=== PATIENT | male | born 1965 | race Caucasian/White ===

== ENCOUNTER 2018-04-16 19:03 | Emergency (ER) | payer OTHER ==
[~2018-04-16] VITALS: Ht 160 cm; Wt 83.5 kg
[2018-04-16 19:07] VITALS: BP 145/95
--- NOTE | 2018-04-16 19:18 | NUR ---
PT TO ED 03 WITH STEADY GAIT.
--- NOTE | 2018-04-16 19:22 | NUR ---
PT PRESENTS TO ED WITH C/O EPITAXIS X 1400 TODAY. NO ACTIVE BLEEDING AT THIS TIME. PT REPORTS MILD BLEEDING WHEN TAKING A SHOWER AGAIN AT 1700 TODAY. DENIES TRAUMA OR DISTRESS. PT PLACED INTO BED, PENDING MD MUNOZ.
[2018-04-16] MEDS ORDERED: hydrALAZINE 20 MG/ML VIAL IM ONE (19:55)
[2018-04-16 20:15] LABS: BASOPHILS # (AUTO) 0.1 K/uL (0.00-0.22); BASOPHILS % (AUTO) 0.7 % (0.0-2.0); EOSINOPHILS # (AUTO) 0.1 K/uL (0-0.4); EOSINOPHILS % (AUTO) 0.7 % (0.0-4.0); HEMATOCRIT 48.5 % (36-52); HEMOGLOBIN 16.6 g/dL (12.0-18.0); LYMPHOCYTES # (AUTO) 1.7 K/uL (2.0-11.5); LYMPHOCYTES % (AUTO) 20.9 % (20.5-51.1); MEAN CORPUSCULAR HEMOGLOBIN 32 pg (27-31); MEAN CORPUSCULAR HGB CONC 34 g/dL (33-37); MEAN CORPUSCULAR VOLUME 92.8 fL (80-94); MONOCYTES # (AUTO) 0.6 K/uL (0.8-1.0); MONOCYTES % (AUTO) 7.7 % (1.7-9.3); NEUTROPHILS # (AUTO) 5.6 K/uL (1.8-7.7); PLATELET COUNT (AUTO) 179 K/uL (140-450); RED BLOOD CELL COUNT(AUTO) 5.23 MIL/uL (4.20-6.10); RED CELL DISTRIBUTION WIDTH 13.1 % (11.6-13.7)
[2018-04-16 20:27] LABS: ANION GAP 11.5 (8-16); CARBON DIOXIDE 24.9 mmol/L (21-32); CREATININE 0.9 mg/dL (0.7-1.3); POTASSIUM 3.4 mmol/L (3.5-5.1)
[2018-04-16 20:31] LABS: PROTHROMBIN TIME 9.7 secs (10.8-13.4)
[2018-04-16 20:32] LABS: ALBUMIN 3.6 g/dL (3.4-5.0); TOTAL BILIRUBIN 0.4 mg/dL (0.0-1.0)
[2018-04-16 21:23] VITALS: BP 144/96
--- NOTE | 2018-04-16 21:23 | NUR ---
Patient discharged with v/s stable. Written and verbal after care instructions given and explained. Patient alert, oriented and verbalized understanding of instructions. Ambulatory with steady gait. All questions addressed prior to discharge. ID band removed. Patient advised to follow up with PMD. Rx of OXYMETAZOLINE NASAL SPRAY, given. Patient educated on indication of medication including possible reaction and side effects. Opportunity to ask questions provided and answered.
== END 2018-04-16 21:23 | disposition home or self-care (01) ==
LOC: MED 19:03
DX: I10 Essential (primary) hypertension (principal); R04.0 Epistaxis
CPT/HCPCS: 36415; 80053; 85025; 85610; 85730; 96372; 99283; J0360

== ENCOUNTER 2019-03-11 13:43 | Emergency (ER) | payer OTHER ==
[~2019-03-11] VITALS: Ht 165.1 cm; Wt 88.5 kg
[2019-03-11 13:50] VITALS: BP 121/95
--- NOTE | 2019-03-11 13:59 | NUR ---
Patient ambulated to bed 8 with family. RN evaluating patient at bedside.
--- NOTE | 2019-03-11 14:03 | NUR ---
EKG completed at bedside by EMT.
[2019-03-11] MEDS ORDERED: ACETAMINOPHEN EXTRA STRENGTH 500 MG TAB PO ONE (14:10)
[2019-03-11] MEDS ORDERED: AMOX-999 PO (14:27)
[2019-03-11] MEDS ORDERED: PRAV20TA2 PO (14:27)
[2019-03-11] MEDS ORDERED: BENZ-196 PO (14:27)
[2019-03-11] MEDS ORDERED: AMLO10TA PO (14:27)
[2019-03-11 14:49] LABS: BASOPHILS % (AUTO) 0.4 % (0.0-2.0); HEMATOCRIT 44.7 % (36-52); HEMOGLOBIN 14.9 g/dL (12.0-18.0); LYMPHOCYTES # (AUTO) 0.8 K/uL (2.0-11.5); LYMPHOCYTES % (AUTO) 16.4 % (20.5-51.1); MEAN CORPUSCULAR HEMOGLOBIN 30 pg (27-31); MEAN CORPUSCULAR HGB CONC 33 g/dL (33-37); MEAN CORPUSCULAR VOLUME 91.1 fL (80-94); MONOCYTES # (AUTO) 0.2 K/uL (0.8-1.0); MONOCYTES % (AUTO) 5.1 % (1.7-9.3); NEUTROPHILS # (AUTO) 3.7 K/uL (1.8-7.7); NEUTROPHILS % (AUTO) 78.1 % (42.2-75.2); PLATELET COUNT (AUTO) 107 K/uL (140-450); RED CELL DISTRIBUTION WIDTH 14.6 % (11.6-13.7); WHITE BLOOD COUNT (AUTO) 4.8 K/uL (4.8-10.8)
[2019-03-11] MEDS ORDERED: NACL 0.9% 1,000 ML IV ONE (14:55)
[2019-03-11] MEDS ORDERED: IBUPROFEN 600 MG TAB PO ONE (14:55)
[2019-03-11] MEDS ORDERED: ALBUTEROL SULFATE/IPRATROPIU 3 ML SOL IH ONE (14:55)
[2019-03-11 15:28] LABS: ALBUMIN 2.9 g/dL (3.4-5.0); ANION GAP 13.7 (8-16); CARBON DIOXIDE 23.9 mmol/L (21-32); CREATININE 0.9 mg/dL (0.7-1.3); POTASSIUM 3.6 mmol/L (3.5-5.1); TOTAL BILIRUBIN 0.5 mg/dL (0.0-1.0)
[2019-03-11] MEDS ORDERED: AZITHROMYCIN 250 MG TAB PO ONE (16:05)
--- NOTE | 2019-03-11 16:25 | NUR ---
53 YO MALE CO FEVER, COUGH AND CHEST PAIN FOR 2D. NO MED HX AND NO HOME MEDS. PT IS HERE WITH HIS . NO ONE ELSE AT HOME IS SICK. NKA. NO NAUSEA OR VOMITING.
[2019-03-11 16:38] VITALS: BP 120/70
--- NOTE | 2019-03-11 16:38 | NUR ---
IV removed, catheter intact and site benign. Applied folded 4x4 gauze and tape to stop bleeding.
--- NOTE | 2019-03-11 16:40 | NUR ---
Patient discharged with v/s stable. Written and verbal after care instructions given and explained. Patient alert, oriented and verbalized understanding of instructions. Ambulatory with steady gait. All questions addressed prior to discharge. ID band removed. Patient advised to follow up with PMD. Rx of AZITHROMYCIN, ALBUTEROL, PROMETHAZINE given. Patient educated on indication of medication including possible reaction and side effects. Opportunity to ask questions provided and answered.
== END 2019-03-11 16:40 | disposition home or self-care (01) ==
LOC: MED 13:43
DX: J18.9 Pneumonia, unspecified organism (principal); R74.0 Nonspecific elevation of levels of transaminase and lactic acid dehydrogenase [LDH]; Z79.899 Other long term (current) drug therapy
CPT/HCPCS: 36415; 71045; 80053; 83605; 83880; 84484; 85025; 87040; 87804; 93005; 94640; 99284; J7030; J7620; Q0092

== ENCOUNTER 2019-03-14 11:10 | Inpatient (IN) | payer OTHER ==
[~2019-03-14] VITALS: Ht 160 cm; Wt 86.2 kg
[~2019-03-14 11:10] MED LIST: AMLO10TA PO; AMOX-999 PO; BENZ-196 PO; PRAV20TA2 PO
[2019-03-14 11:41] VITALS: BP 114/71
--- NOTE | 2019-03-14 11:47 | NUR ---
Patient ambulated to bed 3 with family. RN evaluating patient at bedside.
--- NOTE | 2019-03-14 12:16 | NUR ---
Dr. Garcia is evaluating the patient at bedside.
[2019-03-14] MEDS ORDERED: PIPERACILLIN/TAZOBACTAM 3.375 GM in DEXTROSE 5% 50 ML IV ONE (12:30)
--- NOTE | 2019-03-14 12:34 | NUR ---
X-RAY AT BEDSIDE
[2019-03-14] MEDS ORDERED: PIPERACILLIN/TAZOBACTAM 3.375 GM VIAL IV ONE (12:39)
[2019-03-14] MEDS: NACL 0.9% 500 ML IV SCH ×2 (13:19→14:30)
[2019-03-14 13:34] LABS: BASOPHILS % (AUTO) 0.2 % (0.0-2.0); HEMATOCRIT 43.1 % (36-52); HEMOGLOBIN 14.5 g/dL (12.0-18.0); LYMPHOCYTES # (AUTO) 1.3 K/uL (2.0-11.5); LYMPHOCYTES % (AUTO) 22.7 % (20.5-51.1); MEAN CORPUSCULAR HEMOGLOBIN 30 pg (27-31); MEAN CORPUSCULAR HGB CONC 34 g/dL (33-37); MEAN CORPUSCULAR VOLUME 90.1 fL (80-94); MONOCYTES # (AUTO) 0.6 K/uL (0.8-1.0); MONOCYTES % (AUTO) 10.6 % (1.7-9.3); NEUTROPHILS # (AUTO) 3.9 K/uL (1.8-7.7); NEUTROPHILS % (AUTO) 66.5 % (42.2-75.2); PLATELET COUNT (AUTO) 173 K/uL (140-450); RED BLOOD CELL COUNT(AUTO) 4.78 MIL/uL (4.20-6.10); RED CELL DISTRIBUTION WIDTH 14.4 % (11.6-13.7); WHITE BLOOD COUNT (AUTO) 5.8 K/uL (4.8-10.8)
--- NOTE | 2019-03-14 13:37 | NUR ---
c/o cough, sob x today. pt states he was discharge on wednesday from this hosptial for PNA. pt went to urgent care today for check up was referred to the er. pt lung sounds are crackles on on left lobe. spo2 96% 2lnc. a & ox4. speech is clear. airways is patent. productive cough present. vss. no use of accesory muscle. nka. pmh: htn, high cholesterol
[2019-03-14 13:49] LABS: PROTHROMBIN TIME 9.6 secs (10.8-13.4)
[2019-03-14 13:58] LABS: ANION GAP 15.7 (8-16); CARBON DIOXIDE 22.6 mmol/L (21-32); CREATININE 0.9 mg/dL (0.7-1.3); POTASSIUM 3.3 mmol/L (3.5-5.1); TOTAL BILIRUBIN 0.4 mg/dL (0.0-1.0)
[2019-03-14 13:59] LABS: ALBUMIN 2.8 g/dL (3.4-5.0)
[2019-03-14] MEDS ORDERED: NACL 0.9% 1,500 ML IV ONE (14:05)
[2019-03-14 14:54] LABS: APPEARANCE,URINE CLEAR (CLEAR); BILIRUBIN,URINE NEGATIVE (NEGATIVE); BLOOD, URINE NEGATIVE (NEGATIVE); COLOR,URINE YELLOW (YELLOW); LEUKOCYTE ESTERASE ,URINE NEGATIVE (NEGATIVE); NITRITE, URINE NEGATIVE (NEGATIVE); PH,URINE 6.5 (5.0-9.0); UGLUCOSE NEGATIVE (NEGATIVE)
[2019-03-14] MEDS ORDERED: PRON INH (14:57)
[2019-03-14] MEDS ORDERED: AZIT250T3 PO (14:57)
[2019-03-14] MEDS ORDERED: PHE25S RC (14:57)
--- NOTE | 2019-03-14 15:00 | NUR ---
Patient will be admitted to care of DR SCHULER. Admited to MED SURG TELE. Will go to room 106B. Belongings list completed. Report to NIKKI STOUT.
[2019-03-14 15:15] VITALS: BP 117/73
--- NOTE | 2019-03-14 15:45 | NUR ---
pT ADMITTED TO [facility] UNIT VIA ROSS AT 1515. REVIEVED PT AWAKE A/O ABLE TO COMMUNICATE NEEDS, FAMILY AT DEDSIDE, PT DENIES PAIN, DENIES SOB, IVF BOLUS INFUSING FROM ER, PIV SITE INTACT. COMPLETED ADMISSION ASSESSMENT, MRSA SWAB COLLECTED. ORIENTED TO UNIT AND ROOM, CALL LIGHT AND PERSONAL ITEMS PLACED WITHIN EASY REACH, SAFETY PRECAUTIONS IN PLACE, WILL CONTINUE TO MONITOR.
[2019-03-14] MEDS ORDERED: HYDROcodone/APAP 10/325 MG 1 TAB TAB PO PRN (16:20)
[2019-03-14] MEDS: NACL 0.9% 1,000 ML IV SCH (16:32)
[2019-03-14] MEDS ORDERED: LORazepam 2 MG/ML VIAL IVP PRN (16:55)
[2019-03-14] MEDS ORDERED: MORPHINE SULFATE 2 MG/ML SYR IVP PRN (16:55)
[2019-03-14] MEDS ORDERED: MORPHINE SULFATE 4 MG/ML SYR IVP PRN (16:55)
[2019-03-14] MEDS ORDERED: ONDANSETRON 4 MG/2 ML VIAL IVP PRN (16:55)
[2019-03-14] MEDS ORDERED: ALBUTEROL 0.083% 2.5 MG/3 ML NEBU INH PRN (16:55)
[2019-03-14] MEDS ORDERED: PROMETH/CODEINE 6.25-10MG/5ML 5 ML UDC PO PRN (17:05)
--- NOTE | 2019-03-14 17:33 | NUR ---
NOTIFIED OF PT LABS, NO NEW ORDERS AT THIS TIME.
--- NOTE | 2019-03-14 17:45 | NUR ---
PT RMAINS A/O ABLE TO COMMUNICATE NEEDS, VISITORS AT BEDSIDE. CALL LIGHT AND PERSONAL ITEMS REMAIN WITHIN EASY REACH, SAFETY PRECAUTIONS IN PLACE, WILL CONTINUE TO MONITOR.
[2019-03-14] MEDS: IPRATROPIUM 0.02% 0.5 MG/2.5 ML NEBU INH SCH (19:07)
[2019-03-14] MEDS: ALBUTEROL 0.083% 2.5 MG/3 ML NEBU INH SCH (19:07)
--- NOTE | 2019-03-14 19:10 | NUR ---
RECEIVED BEDSIDE REPORT FROM DAY SHIFT NURSE. PATIENT IS AWAKE, ALERT, AND COOPERATIVE. RESPIRATION EVEN UNLABORED ON ROOM AIR. NO DISTRESS NOTED. SKIN IS WARM AND DRY. IV PATENT AND INTACT. PLAN OF CARE WAS DISCUSSED. ALL SAFETY MEASURES IN PLACE. BED IS AT LOW POSITION. CALL LIGHT WITHIN REACH AND VERBALIZES ITS USE. WILL CONTINUE TO MONITOR.
--- NOTE | 2019-03-14 19:17 | NUR ---
RECEIVED PT ON 2L NC WITH SP02 OF 94% AND A CLEAR DIMINISHED BREATH SOUNDS ON THE UPPER LOBES. NO RESPIRATORY DISTRESS NOTED AT THIS TIME. [facility] TX GIVEN ORDERED WITH NO ADVERSE REACTION. FAMILY AT BEDSIDE. WILL CONTINUE TO MONITOR PT.
--- NOTE | 2019-03-14 19:20 | NUR ---
REPORT GIVEN TO NIGHT NURSE IVIS, PT REMAINS A/O ABLE TO COMMUNICATE NEEDS, FAMILY AT BEDSIDE, NO S/S OF ACUTE DISTRESS, CALL LIGHT AND PERSONAL ITEMS WITHIN REACH, SAFETY PRECAUTIONS REMAIN IN PLACE.
[2019-03-14 20:00] VITALS: BP 136/76
--- NOTE | 2019-03-14 20:00 | NUR ---
INITIAL ASSESSMENT DONE. VITALS WERE TAKEN. PATIENT IN STABLE CONDITION. NO DISTRESS NOTED. WILL CONTINUE TO MONITOR.
--- NOTE | 2019-03-14 21:00 | NUR ---
ALL SCHEDULED MEDS WERE GIVEN PER ORDER. NO ASE NOTED. WILL CONTINUE TO MONITOR.
[2019-03-14] MEDS: methylPREDNISolone SS 40 MG/ML VIAL IVP SCH (21:01)
[2019-03-14] MEDS: PIPERACILLIN/TAZOBACTAM 3.375 GM in DEXTROSE 5% 50 ML IV SCH (21:01)
[2019-03-14] MEDS: LEVOFLOXACIN 750 MG/D5W PREMIX 150 ML IV SCH (22:22)
--- NOTE | 2019-03-14 23:00 | NUR ---
CHECKED PATIENT. PATIENT SLEEPING RESPIRATION EVEN UNLABORED ON 2L NC O2. NO DISTRESS NOTED. WILL CONTINUE TO MONITOR.
[2019-03-15] VITALS: BP 110/61
--- NOTE | 2019-03-15 00:10 | NUR ---
VITALS WERE TAKEN. PATIENT IN STABLE CONDITION. NO DISTRESS NOTED. WILL CONTINUE TO MONITOR.
[2019-03-15] MEDS: IPRATROPIUM 0.02% 0.5 MG/2.5 ML NEBU INH SCH ×4 (00:42→18:59)
[2019-03-15] MEDS: ALBUTEROL 0.083% 2.5 MG/3 ML NEBU INH SCH ×4 (00:42→19:00)
--- NOTE | 2019-03-15 00:55 | NUR ---
PT IN NO RESPIRATORY DISTRESS. [facility] TX GIVEN AT THIS TIME WITH NO ADVERSE REACTION. WILL CONTINUE TO MONITOR PT.
--- NOTE | 2019-03-15 02:00 | NUR ---
CHECKED PATIENT. PATIENT SLEEPING RESPIRATION EVEN UNLABORED ON O2 2L NC. NO DISTRESS NOTED. WILL CONTINUE TO MONITOR.
[2019-03-15 04:00] VITALS: BP 107/60
--- NOTE | 2019-03-15 04:00 | NUR ---
VITALS WERE TAKEN. PATIENT IN STABLE CONDITION. NO DISTRESS NOTED. WILL CONTINUE TO MONITOR.
[2019-03-15] MEDS: PIPERACILLIN/TAZOBACTAM 3.375 GM in DEXTROSE 5% 50 ML IV SCH ×2 (04:12→13:24)
[2019-03-15] MEDS: NACL 0.9% 1,000 ML IV SCH ×2 (04:50→16:57)
[2019-03-15] MEDS: PANTOPRAZOLE 40 MG TABEC PO SCH (06:35)
--- NOTE | 2019-03-15 07:11 | NUR ---
ENDORSED PATIENT TO DAY SHIFT NURSE. PATIENT IN STABLE CONDITION
[2019-03-15 07:20] LABS: BASOPHILS % (AUTO) 0.3 % (0.0-2.0); HEMATOCRIT 40.7 % (36-52); HEMOGLOBIN 13.7 g/dL (12.0-18.0); LYMPHOCYTES # (AUTO) 0.6 K/uL (2.0-11.5); LYMPHOCYTES % (AUTO) 15.2 % (20.5-51.1); MEAN CORPUSCULAR HEMOGLOBIN 30 pg (27-31); MEAN CORPUSCULAR HGB CONC 34 g/dL (33-37); MEAN CORPUSCULAR VOLUME 90.6 fL (80-94); MONOCYTES # (AUTO) 0.1 K/uL (0.8-1.0); MONOCYTES % (AUTO) 2.9 % (1.7-9.3); NEUTROPHILS % (AUTO) 81.6 % (42.2-75.2); PLATELET COUNT (AUTO) 197 K/uL (140-450); RED BLOOD CELL COUNT(AUTO) 4.49 MIL/uL (4.20-6.10); WHITE BLOOD COUNT (AUTO) 3.7 K/uL (4.8-10.8)
--- NOTE | 2019-03-15 07:28 | NUR ---
SHIFT REPORT RECEIVED FROM MOBILE PAINT SPECIALIST NURSE. PT IS IN BED RESTING AT HIS TIME. NO DISTRESS NOTED. CALL LIGHT IN REACH.
[2019-03-15 07:54] LABS: ANION GAP 16.7 (8-16); CARBON DIOXIDE 20.4 mmol/L (21-32); CREATININE 0.8 mg/dL (0.7-1.3); POTASSIUM 4.1 mmol/L (3.5-5.1)
[2019-03-15 08:00] VITALS: BP 109/63
--- NOTE | 2019-03-15 08:02 | NUR ---
PATIENT HAS BEEN SCREENED AND CATEGORIZED MODERATE NUTRITION RISK. PATIENT WILL BE SEEN WITHIN 3-5 DAYS OF ADMISSION. 03/17/19 03/19/[address]
[2019-03-15] MEDS: ATORVASTATIN 20 MG TAB PO SCH (09:27)
[2019-03-15] MEDS: methylPREDNISolone SS 40 MG/ML VIAL IVP SCH ×2 (09:27→20:38)
[2019-03-15] MEDS: amLODIPine 5 MG TAB PO SCH (09:27)
[2019-03-15] MEDS: HYDROcodone/APAP 5/325 MG 1 TAB TAB PO PRN (09:28)
[2019-03-15] MEDS: ENOXAPARIN 40 MG/0.4 ML SYR SUBQ SCH (09:28)
--- NOTE | 2019-03-15 09:30 | NUR ---
PT IS IN BED IN STABLE CONDITION. NO DISTRESS NOTED. FAMILY BE BEDSIDE. CALL LIGHT IN REACH.
--- NOTE | 2019-03-15 11:43 | NUR ---
PT IS IN BED IN STABLE CONDITION. NO DISTRESS NOTED. NO COMPLAINS OF PAIN. FAMILY BE BEDSIDE. CALL LIGHT IN REACH.
[2019-03-15 12:00] VITALS: BP 116/59
--- NOTE | 2019-03-15 14:11 | NUR ---
PT IS RESTING IN BED. NO COMPLAINS OF PAIN. FAMILY BE BEDSIDE. CALL LIGHT IN REACH.
[2019-03-15 16:00] VITALS: BP 104/59
--- NOTE | 2019-03-15 16:30 | NUR ---
RECEIVED REPORT FROM RN. PT RESTING IN BED. AAOX4. NO S/S OF ACUTE DISTRESS. PT DENIES PAIN. IV SITE PATENT AND INTACT. CALL LIGHT WITHIN REACH. SAFETY MEASURES ENSURED. WILL CONTINUE TO MONITOR.
--- NOTE | 2019-03-15 16:30 | NUR ---
REPORT GIVEN TO NURSE WALSH. PT IS IN STABLE CONDITION. FAMILY BY BEDSIDE. CALL LIGHT IN REACH.
--- NOTE | 2019-03-15 16:55 | NUR ---
EDITH assessment/discharge plan Basic Screen: Yes Name: Carrie Begum Relationship: Pre-Admission Living Arrangements: Lives with Other Other: family Prior ADL Independent Healthcare Decision Maker: Patient Advance Directive No Information Taught: Advance Directive Community Resources Person Taught: Patient Teaching Tools: Community Resources Computer Generated Print Verbal Factors Affecting Learning: None Participation Level: Active Evaluation: Gestures Understanding Verbalizes Understanding Educator: EDITH Boateng Discipline: Case Mgt/Social Svcs Tentative Discharge Plan Summary: Patient is a 53 year old male admitted for pneumonia. I met with patient at bedside. Patient alert and oriented x4. Patient speaks Croatian. Patient lives at home with his family and plans to return home upon discharge. Patient follows up with his pcp regularly and does not have any difficulty filling his prescriptions. He denied hx of mental health and alcohol/substance abuse. I provided patient with education on [employer] for community resources. Owner Manager and/or Retail Aide will follow up as needed. Signature: EIDTH Boateng Date: Mar 15, 2019
--- NOTE | 2019-03-15 19:22 | NUR ---
RECEIVED PT ON ROOM AIR WITH SP02 OF 94% AND A CLEAR DIMINISHED BREATH SOUNDS ON THE UPPER LOBES. NO RESPIRATORY DISTRESS NOTED AT THIS TIME. [facility] TX GIVEN ORDERED WITH NO ADVERSE REACTION. FAMILY AT BEDSIDE. WILL CONTINUE TO MONITOR PT
[2019-03-15 20:00] VITALS: BP 116/62
--- NOTE | 2019-03-15 20:00 | NUR ---
VITALS WERE TAKEN. PATIENT IN STABLE CONDITION. NO DISTRESS NOTED. AT BEDSIDE. WILL CONTINUE TO MONITOR.
--- NOTE | 2019-03-15 20:30 | NUR ---
ALL SCHEDULED MEDS WERE GIVEN PER ORDER. NO ASE NOTED. WILL CONTINUE TO MONITOR.
[2019-03-15] MEDS: LEVOFLOXACIN 750 MG/D5W PREMIX 150 ML IV SCH (20:38)
--- NOTE | 2019-03-15 22:00 | NUR ---
CHECKED ON PATIENT. PATIENT ASLEEP RESPIRATION EVEN UNLABORED ON ROOM AIR. NO DISTRESS NOTED. WILL CONTINUE TO MONITOR.
[2019-03-16] VITALS: BP 120/64
[2019-03-16] MEDS: HYDROcodone/APAP 5/325 MG 1 TAB TAB PO PRN (00:14)
--- NOTE | 2019-03-16 00:15 | NUR ---
VITALS WERE TAKEN. PATIENT COMPLAINED OF BACK PAIN 6/10. PRN PAIN MED ADMINISTERED PER ORDER. WILL CONTINUE TO MONITOR
[2019-03-16] MEDS: ALBUTEROL 0.083% 2.5 MG/3 ML NEBU INH SCH ×2 (02:09→07:49)
[2019-03-16] MEDS: IPRATROPIUM 0.02% 0.5 MG/2.5 ML NEBU INH SCH ×2 (02:09→07:49)
--- NOTE | 2019-03-16 02:13 | NUR ---
PT SEEN AT THIS TIME IN NO RESPIRATORY DISTRESS. [facility] TX GIVEN ORDERED WITH NO ADVERSE REACTION. WILL CONTINUE TO MONITOR PT.
[2019-03-16] MEDS: NACL 0.9% 1,000 ML IV SCH (03:55)
[2019-03-16] MEDS: PANTOPRAZOLE 40 MG TABEC PO SCH (06:32)
--- NOTE | 2019-03-16 06:55 | NUR ---
ENDORSED PATIENT TO DAY SHIFT NURSE. PATIENT IN STABLE CONDITION.
--- NOTE | 2019-03-16 07:00 | NUR ---
RECEIVED BEDSIDE REPORT FROM NIGHTSHIFT NURSE. PT ASLEEP IN BED UPON ARRIVAL. RESPIRATIONS EVEN AND UNLABORED WITH NO SOB OR RESPIRATORY DISTRESS. ABLE TO MAKE NEEDS KNOWN. SKIN WARM AND DRY TO TOUCH. IV SITE IN LAC 20 G IS CLEAN, DRY, AND INTACT. SAFETY MEASURES IN PLACE. WILL CONTINUE TO MONITOR.
[2019-03-16 07:17] LABS: BASOPHILS % (AUTO) 0.5 % (0.0-2.0); HEMATOCRIT 40.5 % (36-52); HEMOGLOBIN 13.8 g/dL (12.0-18.0); LYMPHOCYTES # (AUTO) 0.8 K/uL (2.0-11.5); LYMPHOCYTES % (AUTO) 9.8 % (20.5-51.1); MEAN CORPUSCULAR HEMOGLOBIN 31 pg (27-31); MEAN CORPUSCULAR HGB CONC 34 g/dL (33-37); MEAN CORPUSCULAR VOLUME 90.1 fL (80-94); MONOCYTES # (AUTO) 0.7 K/uL (0.8-1.0); MONOCYTES % (AUTO) 7.6 % (1.7-9.3); NEUTROPHILS % (AUTO) 82.1 % (42.2-75.2); PLATELET COUNT (AUTO) 262 K/uL (140-450); RED CELL DISTRIBUTION WIDTH 13.8 % (11.6-13.7); WHITE BLOOD COUNT (AUTO) 8.5 K/uL (4.8-10.8)
[2019-03-16 08:00] VITALS: BP 112/63
--- NOTE | 2019-03-16 08:15 | NUR ---
PT RESTING IN BED WITH FAMILY AT BEDSIDE. RESPIRATIONS EVEN AND UNLABORED WITH NO SOB OR RESPIRATORY DISTRESS. ABLE TO MAKE NEEDS KNOWN. SKIN WARM AND DRY TO TOUCH. SAFETY MEASURES IN PLACE. WILL CONTINUE TO MONITOR.
[2019-03-16 08:50] LABS: ALBUMIN 2.6 g/dL (3.4-5.0); ANION GAP 19.3 (8-16); CARBON DIOXIDE 19.9 mmol/L (21-32); CREATININE 0.8 mg/dL (0.7-1.3); POTASSIUM 4.2 mmol/L (3.5-5.1); TOTAL BILIRUBIN 0.4 mg/dL (0.0-1.0)
[2019-03-16] MEDS: ENOXAPARIN 40 MG/0.4 ML SYR SUBQ SCH (09:30)
[2019-03-16] MEDS: ATORVASTATIN 20 MG TAB PO SCH (09:32)
--- NOTE | 2019-03-16 09:32 | NUR ---
ADMINISTERED SCHED MED PRESCRIBED PER MD ORDER. PT TOLERATED WELL. MEDICATION EDUCATION PERFORMED. PT VERBALIZED UNDERSTANDING. SAFETY MEASURES IN PLACE. WILL CONTINUE TO MONITOR.
[2019-03-16] MEDS: amLODIPine 5 MG TAB PO SCH (09:33)
[2019-03-16] MEDS: methylPREDNISolone SS 40 MG/ML VIAL IVP SCH (09:33)
--- NOTE | 2019-03-16 12:40 | NUR ---
PT CALLED AND COMPLAINED OF COUGHING. ADMINISTERED PRN COUGH MEDICATION PRESCRIBED PER MD ORDER. PT TOLERATED WELL. MEDICATION EDUCATION PERFORMED.
--- NOTE | 2019-03-16 13:00 | NUR ---
PT REQUESTED TO TAKE A SHOWER. PT ASSISTED INTO BATHROOM. SAFETY MEASURES IN PLACE. WILL CONTINUE TO MONITOR.
--- NOTE | 2019-03-16 13:14 | NUR ---
PER MERISSA/RN PATIENT OUT OF ROOM IN SHOWER STRIKER OUT TO ATTEMPT [facility] THERAPY AND RES[IRATORY DRUGS AT A LATER TIME
--- NOTE | 2019-03-16 13:17 | NUR ---
PT RETURNED FROM SHOWER. NO COMPLICATIONS AT THIS TIME. SAFETY MEASURES IN PLACE WILL CONTINUE TO MONITOR
[2019-03-16 14:20] VITALS: BP 112/63
--- NOTE | 2019-03-16 14:54 | NUR ---
WENT OVER DC INFORMATION WITH PATIENT. AT BEDSIDE. PT SIGNED APPROPRIATE FORMS. EDUCATED PT TO VISIT ED FOR ANY SIGNS OF DISTRESS. PT VERBALIZED UNDERSTANDING. PT GIVEN PRESCRIPTION. PT NOT APPLICABLE FOR PNA VACCINE. PT REFUSED FLU VACCINE. PT CHANGED INTO OWN CLOTHES AND GATHERED HIS BELONGINGS. INTACT IV CANNULA AND ID BAND REMOVED. PT WHEELED OUT TO PRIVATE VEHICLE TO GO HOME WITH . PT IS STABLE.
== END 2019-03-16 14:54 | disposition home health service (06) | DRG 139 ==
LOC: MED 11:10 → MTU 14:18
PROVIDERS: ADMIT Internal Medicine Pulmonary Disease; ATTEND Internal Medicine Pulmonary Disease
DX: J18.9 Pneumonia, unspecified organism (principal); E78.00 Pure hypercholesterolemia, unspecified; E78.5 Hyperlipidemia, unspecified; J11.1 Influenza due to unidentified influenza virus with other respiratory manifestations; I10 Essential (primary) hypertension; Z79.899 Other long term (current) drug therapy
CPT/HCPCS: 36415; 71045; 76700; 80048; 80053; 81003; 83605; 83735; 83880; 84484; 85025; 85610; 85730; 87040; 87081; 87086; 87205; 87804; 93005; 94640; 96361; 96365; 99285; J1650; J1956; J2543; J2920; J7030; J7060; J7613; J7644; Q0092

== ENCOUNTER 2021-06-07 23:30 | Emergency (ER) | payer OTHER ==
[~2021-06-07] VITALS: Ht 170.2 cm; Wt 84.4 kg
[~2021-06-07 23:30] MED LIST changes: +AZIT250T3 PO; +PHE25S RC; +PRON INH
[2021-06-07 23:36] VITALS: BP 141/81
[2021-06-07] MEDS: FLUORESCEIN OPTH STRIP 1 MG OP ONE (23:45)
[2021-06-07] MEDS: TETRACAINE HCL/PF 0.5% OPTH 4 ML BTL OP ONE (23:46)
[2021-06-08] MEDS ORDERED: ERYT5OIN51 OP (03:36)
[2021-06-08] MEDS ORDERED: ACET-8386 PO (03:36)
[2021-06-08] MEDS ORDERED: IBUP-2213 PO (03:36)
[2021-06-08 03:45] VITALS: BP 130/78
== END 2021-06-08 03:45 | disposition home or self-care (01) ==
LOC: MED 23:30
DX: S05.32XA Ocular laceration without prolapse or loss of intraocular tissue, left eye, initial encounter (principal); I10 Essential (primary) hypertension; Z79.899 Other long term (current) drug therapy; W22.8XXA Striking against or struck by other objects, initial encounter; Y93.89 Activity, other specified; Y92.89 Other specified places as the place of occurrence of the external cause; Y99.8 Other external cause status
CPT/HCPCS: 70480; 99284